=== PATIENT | female | born 1990 | race Caucasian/White ===

== ENCOUNTER 2021-09-22 09:46 | Emergency (ER) | payer OTHER ==
[~2021-09-22] VITALS: Ht 152.4 cm; Wt 57.7 kg
[~2021-09-22 09:46] MED LIST: BUPR2SUB SL; LORT1TAB PO; PRENTAB40 PO; SUBO4MIS SL; TYLE167L PO; ZOFR4TAB16 PO
[2021-09-22] MEDS ORDERED: EPINEPHrine INJ 1 MG/ML 1ML AMP IM STA (10:02)
[2021-09-22] MEDS ORDERED: NS 1,000 ML IV ONE (10:05)
[2021-09-22] MEDS ORDERED: methylPREDNISolone 125MG 2ML VIAL IV ONE (10:05)
[2021-09-22] MEDS ORDERED: BENA25CA4 PO (10:33)
[2021-09-22] MEDS ORDERED: PT COMMENT (10:39)
[2021-09-22] MEDS ORDERED: HOME MED LIST COMPLETE! XX SCH (10:40)
[2021-09-22 11:25] VITALS: BP 131/86
[2021-09-22] MEDS ORDERED: EPIP0.3I2 IM (11:29)
== END 2021-09-22 11:37 | disposition home or self-care (01) ==
LOC: M ED 09:46
DX: T63.441A Toxic effect of venom of bees, accidental (unintentional), initial encounter (principal); Z91.041 Radiographic dye allergy status
CPT/HCPCS: 93041; 94760; 96372; 99284; J0171

== ENCOUNTER 2021-11-27 12:58 | Emergency (ER) | payer OTHER ==
[~2021-11-27] VITALS: Ht 154.9 cm; Wt 58.1 kg
[~2021-11-27 12:58] MED LIST changes: +BENA25CA4 PO; +EPIP0.3I2 IM; +PT COMMENT; +SUBO8MIS SL
[2021-11-27 12:59] VITALS: BP 123/77
== END 2021-11-27 15:52 | disposition left against medical advice (07) ==
LOC: M ED 12:58
DX: Z53.21 Procedure and treatment not carried out due to patient leaving prior to being seen by health care provider (principal)

== ENCOUNTER → 2021-12-17 | Outpatient (CLI) | payer MEDICAID, OTHER | LOC: M PLALAB 13:06 | PROVIDERS: ATTEND Obstetrics & Gynecology | DX: Z34.92 Encounter for supervision of normal pregnancy, unspecified, second trimester (principal); Z3A.00 Weeks of gestation of pregnancy not specified ==

== ENCOUNTER → 2022-01-27 | Outpatient (CLI) | payer OTHER | LOC: M PLALAB 11:45 | PROVIDERS: ATTEND Obstetrics & Gynecology | DX: Z34.92 Encounter for supervision of normal pregnancy, unspecified, second trimester (principal) ==

== ENCOUNTER → 2022-03-20 | Outpatient (CLI) | payer OTHER ==
[2022-03-20 13:44] LABS: HEMATOCRIT 25.6 % (36.0-47.0); HEMOGLOBIN 8.2 g/dl (12.0-15.5); MEAN CORPUSCULAR HEMOGLOBIN 28.2 pg (27.0-33.0); PLATELET COUNT, AUTOMATED 386 10^3/uL (150-450); RED BLOOD COUNT 2.91 10^6/uL (4.00-5.40); WHITE BLOOD COUNT 10.4 10^3/uL (4.0-10.0)
[2022-03-20 15:27] LABS: GC DNA AMPLIFICATION NEGATIVE (NEGATIVE)
== END ==
LOC: M PLALAB 10:54
PROVIDERS: ATTEND Obstetrics & Gynecology
DX: Z34.92 Encounter for supervision of normal pregnancy, unspecified, second trimester (principal)
CPT/HCPCS: 36415; 85027; 86850; 86900; 86901; 87810; 87850; J2790

== ENCOUNTER → 2022-05-05 | Outpatient (CLI) | payer OTHER, MEDICAID ==
[2022-05-05 15:45] LABS: HEMATOCRIT 28.3 % (36.0-47.0); HEMOGLOBIN 9.5 g/dl (12.0-15.5); MEAN CORPUSCULAR HEMOGLOBIN 28.8 pg (27.0-33.0); MEAN CORPUSCULAR HGB CONC 33.6 g/dl (32.0-36.5); MEAN CORPUSCULAR VOLUME 85.8 fl (80.0-96.0); PLATELET COUNT, AUTOMATED 346 10^3/uL (150-450); WHITE BLOOD COUNT 10.5 10^3/uL (4.0-10.0)
[2022-05-05 16:14] LABS: HIV 1&2 SCREEN CENTAUR NEGATIVE (NEGATIVE)
[2022-05-05 16:44] LABS: HEPATITIS C VIRUS ABY INDEX 6.2 INDEX (<0.8)
[2022-05-05 17:02] LABS: GC DNA AMPLIFICATION NEGATIVE (NEGATIVE)
== END ==
LOC: M PLALAB 12:04
PROVIDERS: ATTEND Obstetrics & Gynecology
DX: Z34.92 Encounter for supervision of normal pregnancy, unspecified, second trimester (principal)
CPT/HCPCS: 36415; 85027; 86762; 86780; 86803; 86850; 86870; 86900; 86901; 87086; 87340; 87389; 87522; 87810; 87850; G0463

== ENCOUNTER → 2022-05-25 | Outpatient (REF) | payer OTHER, MEDICAID | LOC: M SFHCWAGY 17:00 | PROVIDERS: ATTEND Obstetrics & Gynecology | DX: Z36.85 Encounter for antenatal screening for Streptococcus B (principal); O30.043 Twin pregnancy, dichorionic/diamniotic, third trimester; Z3A.00 Weeks of gestation of pregnancy not specified ==

== ENCOUNTER → 2022-05-27 | Outpatient (CLI) | payer OTHER, MEDICAID ==
[~2022-05-27] MED LIST changes: +FERR325T81 PO; +ONDA-83 PO; +PREN1TAB25 PO
== END ==
LOC: M WHC 11:06
PROVIDERS: ATTEND Obstetrics & Gynecology
DX: O30.043 Twin pregnancy, dichorionic/diamniotic, third trimester (principal); O32.1XX2 Maternal care for breech presentation, fetus 2; Z3A.36 36 weeks gestation of pregnancy

== ENCOUNTER 2022-12-28 20:39 | Emergency (ER) | payer OTHER, MEDICAID ==
[~2022-12-28] VITALS: Ht 154.9 cm; Wt 53.9 kg
[~2022-12-28 20:39] MED LIST changes: +ACET-683 PO; +COLA100C5 PO; +DOCU100C17 PO; +IBUP-1022 PO; +OXYC-517 PO
[2022-12-28 20:40] VITALS: BP 130/77; TEMP 99.9; O2SAT 98
[2022-12-29] MEDS ORDERED: PIPERACILLIN/TAZOBACTAM SOD 4.5 GM in D5W MINI-BAG PLUS 50 ML IV ONE (01:25)
[2022-12-29] MEDS ORDERED: RABIES IMMUNE GLOBULIN 1500 INTERNATIONAL UNIT/5ML VIAL IM.IMMUN ONE (01:25)
[2022-12-29] MEDS ORDERED: RABIES VACCINE HUMAN 2.5 INTERNATIONAL UNITS/ML VIAL IM.IMMUN ONE (01:25)
[2022-12-29] MEDS ORDERED: BOOSTRIX VACCINE (TETANUS/DIPHTH/ACEL. PERTUSSIS) 0.5ML SYR IM.IMMUN ONE (01:25)
[2022-12-29 02:11] LABS: BASO % 0.2 % (0.0-1.0); EOS # 0.1 10^3/uL (0.0-0.5); EOS % 1.5 % (0.0-3.0); HEMATOCRIT 26.1 % (36.0-47.0); HEMOGLOBIN 8.4 g/dl (12.0-15.5); LYMPH # 2.1 10^3/uL (1.5-5.0); LYMPH % 24.1 % (24.0-44.0); MEAN CORPUSCULAR HEMOGLOBIN 27.6 pg (27.0-33.0); MEAN CORPUSCULAR HGB CONC 32.2 g/dl (32.0-36.5); MEAN CORPUSCULAR VOLUME 85.9 fl (80.0-96.0); MONO # 0.7 10^3/uL (0.0-0.8); MONO % 8.2 % (2.0-8.0); NEUTROPHILS # 5.7 10^3/uL (1.5-8.5); NEUTROPHILS % 65.9 % (36.0-66.0); PLATELET COUNT, AUTOMATED 393 10^3/uL (150-450); RED BLOOD COUNT 3.04 10^6/uL (4.00-5.40); WHITE BLOOD COUNT 8.7 10^3/uL (4.0-10.0)
[2022-12-29 02:26] LABS: ERYTHROCYTE SEDIMENTATION RATE 57 mm/hr (0-20)
[2022-12-29 02:29] LABS: BLOOD UREA NITROGEN 11 MG/DL (9-23); CALCIUM LEVEL 8.7 MG/DL (8.5-10.1); CARBON DIOXIDE LEVEL 25 MMOL/L (20-31); CHLORIDE LEVEL 108 MMOL/L (98-107); GLOMERULAR FILTRATION RATE > 60.0 (>60); GLUCOSE, FASTING 95 MG/DL (60-100); POTASSIUM SERUM 3.6 MMOL/L (3.5-5.1); SODIUM LEVEL 141 MMOL/L (136-145)
[2022-12-29] MEDS ORDERED: AMOX875T2 PO (03:23)
== END 2022-12-29 03:55 | disposition home or self-care (01) ==
LOC: M ED 20:39
DX: L02.413 Cutaneous abscess of right upper limb (principal); W55.01XA Bitten by cat, initial encounter; Y92.009 Unspecified place in unspecified non-institutional (private) residence as the place of occurrence of the external cause; Y93.89 Activity, other specified; Z20.3 Contact with and (suspected) exposure to rabies; F41.9 Anxiety disorder, unspecified; F32.A Depression, unspecified; F17.290 Nicotine dependence, other tobacco product, uncomplicated; F12.90 Cannabis use, unspecified, uncomplicated; Z79.899 Other long term (current) drug therapy; Z88.8 Allergy status to other drugs, medicaments and biological substances; Z91.030 Bee allergy status; Z91.041 Radiographic dye allergy status
CPT/HCPCS: 73080; 80048; 83605; 85025; 85652; 86140; 87040; 87070; 87077; 87186; 87205; 90375; 90471; 90675; 90715; 96365; 96366; 96372; 99283; J2543